=== PATIENT | female | born 1940 | race Caucasian/White ===

== ENCOUNTER 2016-08-23 08:52 | Emergency (ER) | payer MEDICARE ==
[2016-08-23 09:13] VITALS: BP 116/53
--- NOTE | 2016-08-23 10:58 | UC ---
UC General HPI - HPI Summary HPI Summary: DIARRHEA SINCE 08/19/16 HAS EATEN BANANAS AND OATMEAL, DIARRHEA CONTINUES. HAS ALSO DEVELOPED A SLIGHT SORE THROAT. HAS BEEN TAKING VITAMIN C. NO FEVER. NO ABDOMINAL PAIN. - History of Current Complaint Chief Complaint: UCGI Stated Complaint: DIARRHEA Time Seen by Provider: 08/23/16 10:04 Hx Obtained From: Patient Onset/Duration: Lasting Days, Still Present Onset Severity: Mild Current Severity: Moderate Pain Intensity: 0 Associated Signs & Symptoms: Positive: Diarrhea. Negative: Abdominal Pain, Back Pain, Confusion, Cough, Chest Pain, Decreased Responsiveness, Dizziness, Dysuria, Decreased Oral Intake, Diaphoresis, Edema, Fever, Immunocompromised, In -Dwelling Medication Device, Melena, Nausea, Palpitations, Recent Medication Changes, Syncope, SOB, Trauma, Vomiting, Wheezing - Allergy/Home Medications Allergies/Adverse Reactions: Allergies Allergy/AdvReac Type Severity Reaction Status Date / Time dairy Allergy Diarrhea Uncoded 08/23/16 09:04 Home Medications: Home Medications Inhaler 08/23/16 [History] Probiotic Product [Probiotic Daily] 1 cap PO DAILY 08/23/16 [History Confirmed 08/23/16] PMH/Surg Hx/FS Hx/Imm Hx Previously Healthy: Yes Cardiovascular History Of: Denies: Hypertension, Pacemaker/ICD Respiratory History Of: Denies: Asthma GI/ History Of: Denies: Renal Disease Cancer History Of: Denies: Breast Cancer - Surgical History Surgical History: Yes Surgery Procedure, Year, and Place: tonsils, cataracts, CARPAL TUNNEL - Family History Known Family History: Negative: Renal Disease - Social History Occupation: Retired Lives: With Family Alcohol Use: Weekly Alcohol Amount: 5 X WKLY Substance Use Type: None Smoking Status (MU): Never Smoked Tobacco Review of Systems Constitutional: Negative Skin: Negative Eyes: Negative ENT: Negative Respiratory: Negative Cardiovascular: Negative Gastrointestinal: Diarrhea Genitourinary: Negative Motor: Negative Neurovascular: Negative Musculoskeletal: Negative Neurological: Negative Psychological: Negative All Other Systems Reviewed And Are Negative: Yes Physical Exam Triage Information Reviewed: Yes Appearance: Well-Appearing, No Pain Distress, Well-Nourished Vital Signs: Initial Vital Signs Temp 98.4 F 08/23/16 09:07 Pulse 58 08/23/16 09:07 Resp 16 08/23/16 09:07 BP 116/53 08/23/16 09:07 Pulse Ox 100 08/23/16 09:07 Vital Signs Reviewed: Yes Eye Exam: Normal Eyes: Positive: Conjunctiva Clear ENT Exam: Normal ENT: Positive: Normal ENT inspection, Hearing grossly normal, Pharyngeal erythema, TMs normal Dental Exam: Normal Neck exam: Normal Neck: Positive: Supple, Nontender, No Lymphadenopathy Respiratory Exam: Normal Respiratory: Positive: Chest non-tender, Lungs clear, Normal breath sounds, No respiratory distress, No accessory muscle use Cardiovascular Exam: Normal Cardiovascular: Positive: RRR, No Murmur, Pulses Normal, Brisk Capillary Refill Abdominal Exam: Normal Abdomen Description: Positive: Nontender, No Organomegaly, Soft Musculoskeletal Exam: Normal Musculoskeletal: Positive: Strength Intact, ROM Intact Neurological Exam: Normal Psychological Exam: Normal Psychological: Positive: Normal Response To Family Skin Exam: Normal Course/Dx - Differential Dx - Multi-Symptom Differential Diagnoses: Urinary Tract Infection Provider Diagnoses: DIARRHEA. PHARYNGITIS Discharge - Discharge Plan Condition: Stable Disposition: HOME Patient Education Materials: Pharyngitis (ED), Acute Diarrhea (ED) Referrals: Mary Jo Anthony MD [Primary Care Provider] - Additional Instructions: 24 HOURS OF CLEAR LIQUID DIET. THEN BANNANA RICE APPLESAUCE TOAST, STAYING WELL HYDRATED, THEN ADVANCE NORMAL HEALTHY DIET TOLERATED.
== END 2016-08-23 10:52 | disposition home or self-care (01) ==
LOC: UCEAST 08:52
DX: R19.7 Diarrhea, unspecified (principal); J02.9 Acute pharyngitis, unspecified
CPT/HCPCS: 99211; G0463

== ENCOUNTER 2017-02-24 12:02 | Emergency (ER) | payer MEDICARE ==
[2017-02-24 12:28] VITALS: BP 125/58
--- NOTE | 2017-02-24 13:01 | RAD ---
Indication: Pain at the level of the RIGHT first through third metatarsals for 2 weeks following exercise. Comparison: August 14, 2009 DEXA scan documenting osteoporosis. Technique: AP, lateral, and oblique views RIGHT foot Report: Negative for fracture or radiographic stigmata of stress reaction. 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 Small plantar fascia origin bone spur. 2 mm shard shaped radiopaque foreign body along the plantar aspect of the foot medially lateral to the plantar lateral margin of the diaphysis of the first metatarsal. IMPRESSION: 1. No fracture or radiographic stigmata of stress reaction evident. 2. 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 3. 2 mm shard shaped radiopaque foreign body along the plantar aspect of the foot medially lateral to the plantar lateral margin of the diaphysis of the first metatarsal.
--- NOTE | 2017-02-24 13:37 | UC ---
Lower Extremity/Ankle HPI - HPI Summary HPI Summary: TWO WEEKS AGO WAS TRYING 'CHI MACHINE' DAY AFTER EXERCISING, FELT PAIN IN RIGHT FOOT. PAIN CONTINUES IN RIGHT FOOT. - History of Current Complaint Chief Complaint: UCLowerExtremity Stated Complaint: FOOT INJURY Time Seen by Provider: 02/24/17 12:36 Hx Obtained From: Patient Onset/Duration: Sudden Onset, Lasting Weeks, Still Present Severity Initially: Moderate Severity Currently: Mild Aggravating Factor(s): Standing, Ambulation Able to Bear Weight: Yes - Risk Factors Gout Risk Factors: Negative DVT Risk Factors: Negative Septic Arthritis Risk Factor: Negative - Allergies/Home Medications Allergies/Adverse Reactions: Allergies Allergy/AdvReac Type Severity Reaction Status Date / Time dairy Allergy Diarrhea Uncoded 02/24/17 12:28 PMH/Surg Hx/FS Hx/Imm Hx Previously Healthy: Yes - Surgical History Surgical History: Yes Surgery Procedure, Year, and Place: tonsils, cataracts, CARPAL TUNNEL - Family History Known Family History: Negative: Renal Disease - Social History Occupation: Retired Lives: With Family Alcohol Use: Weekly Alcohol Amount: 5 X WKLY Substance Use Type: None Smoking Status (MU): Never Smoked Tobacco Review of Systems Constitutional: Negative Skin: Negative Eyes: Negative ENT: Negative Respiratory: Negative Cardiovascular: Negative Gastrointestinal: Negative Genitourinary: Negative Motor: Negative Neurovascular: Negative Musculoskeletal: Arthralgia, Myalgia Neurological: Negative Psychological: Negative All Other Systems Reviewed And Are Negative: Yes Physical Exam Triage Information Reviewed: Yes Appearance: Well-Appearing, Well-Nourished, Pain Distress - MILD Vital Signs: Initial Vital Signs Temp 98.2 F 02/24/17 12:24 Pulse 73 02/24/17 12:24 Resp 18 02/24/17 12:24 BP 125/58 02/24/17 12:24 Pulse Ox 100 02/24/17 12:24 Vital Signs Reviewed: Yes Eye Exam: Normal ENT Exam: Normal Dental Exam: Normal Neck exam: Normal Neck: Positive: Supple, Nontender, No Lymphadenopathy Respiratory Exam: Normal Respiratory: Positive: Chest non-tender, Lungs clear, Normal breath sounds, No respiratory distress Cardiovascular Exam: Normal Cardiovascular: Positive: RRR, No Murmur Abdominal Exam: Normal Musculoskeletal Exam: Normal Neurological Exam: Normal Psychological Exam: Normal Skin Exam: Normal Lower Extremity Course/Dx - Differential Dx/Diagnosis Differential Diagnosis/HQI/PQRI: Fracture (Closed), Sprain, Strain Provider Diagnoses: 2mm SHARD RETAINED OLD FOREIGN BODY PLANTAR ASPECT OF DIAPHYSIS OF FIRST RIGHT METATARSAL. RIGHT OSTEOARTHRITIS; SMALL PLANTAR FASCIA ORIGIN BONE SPUR; RIGHT SESAMOID BONES. Discharge - Discharge Plan Condition: Stable Disposition: HOME Patient Education Materials: Soft Tissue Foreign Body (ED), Plantar Fasciitis ( ED), Osteoarthritis (ED), Foot Sprain (ED), Heel Spur (ED) Referrals: Mary Jo Anthony MD [Primary Care Provider] - Aviva Joseph DPM [Doctor of Podiatric Medicine] -
== END 2017-02-24 13:47 | disposition home or self-care (01) ==
LOC: UCEAST 12:02
DX: M79.5 Residual foreign body in soft tissue (principal); M19.071 Primary osteoarthritis, right ankle and foot; M77.51 Other enthesopathy of right foot and ankle
CPT/HCPCS: 99213; G0463

== ENCOUNTER 2017-10-27 06:41 | Day surgery (SDC) | payer MEDICARE ==
[2017-10-27] MEDS ORDERED: Sodium Bicarbonate 8.4% SYR* 10 ML SYRINGE ONE (07:05)
[2017-10-27] MEDS ORDERED: Bupivacaine 0.25% SDV* 30 ML ONE ×2 (07:05→08:06)
[2017-10-27] MEDS ORDERED: Lidocain 1% EPI 1:100,000 * 30 ML MDV ONE (07:28)
[2017-10-27 08:43] VITALS: BP 98/61
--- NOTE | 2017-10-27 23:27 | OP ---
DATE OF OPERATION: 10/27/17 - [facility] DATE OF : 42 SURGEON: Kirit Lopez MD ASSISTANT GOLF COURSE SUPERINTENDENT: DAKOTA Sanders ANESTHESIOLOGIST: None. ANESTHESIA: Local only with 1% lidocaine with epinephrine and bicarbonate. PRE-OP DIAGNOSIS: Right middle trigger finger. POST-OP DIAGNOSIS: Right middle trigger finger. OPERATIVE PROCEDURE: Right middle finger trigger finger release of A1 josh. ESTIMATED BLOOD LOSS: 1 mL. COMPLICATIONS: None. FINDINGS: As expected. DESCRIPTION OF PROCEDURE: Alannah was seen in the preoperative holding area. The correct side, site, and procedure were identified. We came back to the operating room where the arm was prepped and draped in the usual fashion. A time-out was performed. Prior to coming back to the operating room, I had injected the operative area with 100,000 to 200,000 of 1% lidocaine with epinephrine and 8.4% bicarbonate. The arm was exsanguinated with the Esmarch and the tourniquet inflated at forearm, tourniquet inflated to 250 mmHg. A 1 cm incision was made directly over the A1 josh of the right middle finger. Dissection was carried out bluntly and full thickness flaps were released off the tendon sheath. I released the A1 josh longitudinally just off the radial aspect of the midline. The release was completed distally and proximally with a tenotomy scissors. Once there was absolutely no more compression of the tendon, I had her make a fist multiple times, she could not induce any triggering. We irrigated out the wound. Skin was closed with 4-0 nylon suture. Wound was dressed with Xeroform, 4x4's, sterile Webril and an Darrel bandage. She was woken up and taken to the recovery room in stable condition. [id number]/[facility] #: [id number] MTDD
== END 2017-10-27 08:45 | disposition home or self-care (01) ==
LOC: OR 06:41
PROVIDERS: ATTEND Orthopaedic Surgery Hand Surgery
DX: M65.331 Trigger finger, right middle finger (principal); Z87.891 Personal history of nicotine dependence; J45.909 Unspecified asthma, uncomplicated

== ENCOUNTER 2017-12-08 09:20 | Emergency (ER) | payer MEDICARE ==
[2017-12-08 09:31] VITALS: BP 120/46
--- NOTE | 2017-12-08 16:28 | UC ---
Thanh Feldman Angela, scribed for Gayr Cheung MD on 12/08/17 at 0935 . Skin Complaint HPI - HPI Summary HPI Summary: This pt is a 77 y/o female presenting to [facility] c/o rash for the past 1 week. Pt reports her rash is pruritic and is diffusely located on her legs, hands, neck, and head. She denies any other complaints. Denies any pain, fever, chills. Denies PMHx. - History of Current Complaint Chief Complaint: UCRash Time Seen by Provider: 12/08/17 09:32 Stated Complaint: RASH Hx Obtained From: Patient Onset/Duration: Lasting Days, Still Present Skin Exposure Onset/Duration: Days Ago Current Severity: None Pain Intensity: 0 Pain Scale Used: 0-10 Numeric Location: Diffuse, Other - legs, hands, neck, head Character: Pruritus Aggravating Factor(s): Nothing Alleviating Factor(s): Nothing Associated Signs & Symptoms: Positive: Rash. Negative: Difficulty Breathing, Fever, Chills, Hoarseness, Throat Tightening, Joint Swelling - Allergy/Home Medications Allergies/Adverse Reactions: Allergies Allergy/AdvReac Type Severity Reaction Status Date / Time dairy Allergy Diarrhea Uncoded 12/08/17 09:21 Review of Systems Constitutional: Negative Skin: Rash Eyes: Negative ENT: Negative Respiratory: Negative Cardiovascular: Negative Gastrointestinal: Negative Genitourinary: Negative Motor: Negative Neurovascular: Negative Musculoskeletal: Negative Neurological: Negative Psychological: Negative All Other Systems Reviewed And Are Negative: Yes PMH/Surg Hx/FS Hx/Imm Hx - Additional Past Medical History Additional PMH: PMHx: chronic back pain, scoliosis Other Endocrine History: DENIES: diabetes Other Cardiovascular History: DENIES: HTN - Surgical History Surgical History: Yes Surgery Procedure, Year, and Place: tonsils, cataracts, CARPAL TUNNEL - Family History Known Family History: Negative: Renal Disease - Social History Alcohol Use: Weekly Alcohol Amount: 5 X WKLY Substance Use Type: None Smoking Status (MU): Never Smoked Tobacco Physical Exam - Summary Physical Exam Summary: VITAL SIGNS: Reviewed. GENERAL: Patient is a well-developed and nourished female who is lying comfortable in the stretcher. Patient is not in any acute respiratory distress. HEAD AND FACE: Normocephalic EYES: PERRLA, EOMI x 2. EARS: Hearing grossly intact. MOUTH: Oropharynx within normal limits. NECK: Supple, trachea is midline, no adenopathy, no JVD, no carotid bruit. CHEST: Symmetric, no tenderness at palpation LUNGS: Clear to auscultation bilaterally. No wheezing or crackles. CVS: Regular rate and rhythm, S1 and S2 present, no murmurs or gallops appreciated. ABDOMEN: Soft, non-tender. Bowel sounds are normal. No abdominal abnormal pulsations. EXTREMITIES: Full ROM in all major joints, no edema, no cyanosis or clubbing. NEURO: Alert and oriented x 3. No acute neurological deficits. Speech is normal and follows commands. SKIN: Dry and warm. Erythematous macules and papules in the upper extremities and lower extremities. Triage Information Reviewed: Yes Vital Signs: Initial Vital Signs Temp 98 F 12/08/17 09:25 Pulse 67 12/08/17 09:25 Resp 16 12/08/17 09:25 BP 120/46 12/08/17 09:25 Pulse Ox 100 12/08/17 09:25 Vital Signs Reviewed: Yes Course/Dx - Course Course Of Treatment: This pt is a 77 y/o female presenting to [facility] c/o rash for the past 1 week. Pt reports her rash is pruritic and is diffusely located on her legs, hands, neck, and head. She denies any other complaints. Denies any pain, fever, chills. Denies PMHx. I believe the pt has scabies. She will be given a prescription for Elimite. Pt will be discharged home with follow up from PCP. If symptoms dont improve she is instructed to follow up with dermatology. Pt was instructed to return to the urgent care or go to ER immediately if any of the symptoms return or worsens. Plan of care was discussed with the patient and pt understands and agrees. All questions were answered to patient satisfaction. There were no further complaints or concerns. Pt is hemodynamically stable, alert and oriented x3. - Diagnoses Provider Diagnoses: Scabies Discharge - Sign-Out/Discharge Documenting (check all that apply): Discharge/Admit/Transfer - Discharge - Discharge Plan Condition: Stable Disposition: HOME Prescriptions: Permethrin 1% LOTION* [Nix 1% LOTION*] 1 applic TOPICAL SEE INSTRUCTIONS #1 btl Patient Education Materials: Scabies (ED) Referrals: Frank Jackman MD [Medical Doctor] - Mary Jo Anthony MD [Primary Care Provider] - Additional Instructions: Follow up with Dr. Jackman, diesel fleet mechanic, if rash does not improve. RETURN TO URGENT CARE OR THE ED FOR ANY WORSENING OR NEW SYMPTOMS. The documentation as recorded by the Thanh martinez Angela accurately reflects the service I personally performed and the decisions made by me, Gary Cheung MD.
== END 2017-12-08 09:42 | disposition home or self-care (01) ==
LOC: UCEAST 09:20
DX: B86 Scabies (principal)
CPT/HCPCS: 99212; G0463

== ENCOUNTER 2019-07-12 07:09 | Day surgery (SDC) | payer MEDICARE ==
[~2019-07-12 07:09] MED LIST: Buffered Lidocaine 1% SYRIN* 1 ML/SYRINGE INTRADERM ONE; Lactated Ringers 1000 ML Bag* 1,000 ML IV SCH
[2019-07-12] MEDS ORDERED: Lidocaine 1% w EPI 1:200,000* SDV 30 ML VIAL ONE (08:09)
[2019-07-12] MEDS ORDERED: Bupivacaine 0.25% SDV PF* 10 ML VIAL INJ ONE (09:58)
--- NOTE | 2019-07-12 20:55 | OP ---
DATE OF OPERATION: 07/12/19 - [facility] DATE OF : 42 SURGEON: Kirit Lopez MD ELECTRICAL INSPECTOR: None. ANESTHESIOLOGIST: None. ANESTHESIA: Local only with 1% lidocaine with epinephrine. PRE-OP DIAGNOSES: 1. Right ring trigger finger. 2. Right ring finger A1 josh nodular mass. POST-OP DIAGNOSES: 1. Right ring trigger finger. 2. Right ring finger A1 josh nodular mass. OPERATIVE PROCEDURE: 1. Excision of right ring finger A1 josh nodular mass. 2. Right ring trigger finger release. INDICATIONS: Ms. Sykes is 78. She has a trigger finger with an A1 josh mass. We talked about treatment options. She wanted to proceed with surgery. ESTIMATED BLOOD LOSS: 5 mL. COMPLICATIONS: None. FINDINGS: See above and below. DESCRIPTION OF PROCEDURE: Ms. Sykes was seen in the preoperative holding area. The correct site, side, and procedures were identified. In the preop area , we had a time-out and injected the operative site with 1% lidocaine with epinephrine. We then came back to the operating room where the arm was prepped and draped in the usual fashion and a time-out was performed. I made a 1 cm longitudinal incision over the A1 jsoh. Dissection was carried down. Full-thickness flaps were raised bluntly off the tendon sheath. The large nodular mass of the A1 josh was seen. I went ahead and cut that with a knife and the tenotomy scissors and it was handed off as a specimen. After I had removed the tendon sheath mass, I used the 15-blade followed by the tenotomy scissors to release the A1 josh. The leading edge of the A2 josh was released. The fascia proximally was released. I then had her flex and extend the finger multiple times. There was no triggering. The wound was irrigated out. Skin was closed with 4-0 nylon sutures. Soft dressings were applied and she was taken to the recovery room in stable condition. [id number]/[facility] #: [id number] BELLA
== END 2019-07-12 10:30 | disposition home or self-care (01) ==
LOC: OR 07:09
PROVIDERS: ATTEND Orthopaedic Surgery Hand Surgery
DX: M65.341 Trigger finger, right ring finger (principal); M67.441 Ganglion, right hand
CPT/HCPCS: 88304; J2001; J3490